=== PATIENT | male | born 1960 | race Caucasian/White ===

== ENCOUNTER 2019-01-12 06:14 | Day surgery (SDC) | payer MEDICARE, OTHER ==
[~2019-01-12] VITALS: Ht 172.7 cm; Wt 88.3 kg
[~2019-01-12 06:14] MED LIST: ALBU2.5V3 NEB; AMLO5TAB4 PO; CLON0.5T14 PO; DOCU250C58 PO; LEVO25TA50 PO; METO-429 PO; OLAN2.5T28 PO; PARO30TA48 PO; [UNRECOGNIZED DRUG - CODE] PO
[2019-01-12 07:00] VITALS: Ht 172.7 cm; Wt 88.3 kg
[2019-01-12 07:44] VITALS: BP 156/84; PULSE 73; RESP 20
[2019-01-12] MEDS ORDERED: PROPOFOL 20 ML ONE (08:41)
[2019-01-12 08:51] VITALS: BP 152/88; RESP 20
== END 2019-01-12 11:28 | disposition home or self-care (01) ==
LOC: GIL 06:14
PROVIDERS: ATTEND Internal Medicine Gastroenterology
DX: K29.00 Acute gastritis without bleeding (principal); I10 Essential (primary) hypertension; E03.9 Hypothyroidism, unspecified; F79 Unspecified intellectual disabilities
CPT/HCPCS: 88305